=== PATIENT | male | born 1950 | race Caucasian/White ===

== ENCOUNTER 2017-08-22 07:22 | Day surgery (SDC) | payer MEDICARE ==
[2017-01-07 11:53] VITALS: BMI 37.3
[2017-08-22] MEDS ORDERED: Propofol 10 mg/ml Inj (20 ML) ONE (08:41)
[2017-08-22] MEDS ORDERED: Lidocaine Hydrochloride 5 ML INJ ONE (08:41)
--- NOTE | 2017-08-22 08:51 | CP.SDSHP ---
Same Day Surgery H & P - History Proposed Procedure: colonoscopy - Previous Medical/Surgical History Cardiac: Hypertension Pulmonary: Asthma - Allergies Allergies: Allergies No Known Allergies Allergy (Verified 08/22/17 08:35) - Date & Time Date: 08/22/17 Time: 08:51 Short Stay Discharge - Short Stay Discharge Admitting Diagnosis/Reason for Visit: ENCOUNTER FOR SCREENING FOR MALIGNANT NEOPLASM OF Disposition: HOME/ ROUTINE
[2017-08-22] MEDS ORDERED: Albuterol HFA 90 mcg/actuation (8 g) ONE (08:55)
[2017-08-22] MEDS ORDERED: Lidocaine 2% Jelly (5 ml) TOP ONE (08:58)
[2017-08-22 09:28] VITALS: TEMP 98
[2017-08-22] MEDS ORDERED: Lactated Ringer's 1,000 ML IV SCH (09:30)
[2017-08-22 09:41] VITALS: O2SAT 100
[2017-08-22 13:50] VITALS: BP 141/73; PULSE 67; RESP 17
== END 2017-08-22 13:48 | disposition home or self-care (01) ==
LOC: C.ENDO 07:22
PROVIDERS: ATTEND Colon & Rectal Surgery
DX: Z12.11 Encounter for screening for malignant neoplasm of colon (principal); I10 Essential (primary) hypertension; J45.909 Unspecified asthma, uncomplicated; K64.4 Residual hemorrhoidal skin tags; K64.8 Other hemorrhoids; K57.30 Diverticulosis of large intestine without perforation or abscess without bleeding; K60.3 Anal fistula
CPT/HCPCS: G0121; J2704; J7120